=== PATIENT | female | born 1975 | race Caucasian/White ===

== ENCOUNTER 2020-07-06 17:03 | Emergency (ER) | payer OTHER ==
[~2020-07-06] VITALS: Ht 152.4 cm; Wt 45.4 kg
[2020-07-06 17:16] VITALS: Ht 152.4 cm; Wt 45.4 kg
[2020-07-06 18:01] VITALS: BP 115/71
== END 2020-07-06 18:01 | disposition home or self-care (01) ==
LOC: ED 17:03
DX: J30.2 Other seasonal allergic rhinitis (principal); H65.93 Unspecified nonsuppurative otitis media, bilateral

== ENCOUNTER 2020-09-30 17:52 | Emergency (ER) | payer OTHER, MEDICAID ==
[~2020-09-30] VITALS: Ht 149.9 cm; Wt 49.0 kg
[2020-09-30 18:36] VITALS: Ht 149.9 cm; Wt 49.0 kg
[2020-10-01 05:26] VITALS: BP 97/62
== END 2020-10-01 05:26 | disposition home or self-care (01) ==
LOC: ED 17:52
DX: G43.909 Migraine, unspecified, not intractable, without status migrainosus (principal); Z88.0 Allergy status to penicillin; Z88.8 Allergy status to other drugs, medicaments and biological substances
CPT/HCPCS: J1200; J2765; J7030